=== PATIENT | male | born 1945 ===

== ENCOUNTER 2016-05-08 09:29 | Day surgery (SDC) | payer MEDICARE, OTHER ==
--- NOTE | ~2016-05-08 | EGD ---
EGD REPORT [facility] [address] [place] [address] NAME: ARTIE JARVIS : [birth year] [place] [facility] [place] [id number] AGE: 70 ADM/REG DATE : 05/08/16 MR#: [id number] REPORT SERV DATE: 05/08/16 DICTATED BY: FRED INIGUEZ DATE: 05/08/16 REPORT STATUS : Draft TRANSCRIBED BY: [facility] DATE: 05/08/16 Endoscopy Center Patient Name: Artie Jarvis Date of : 1945 Attending MD: FRED INIGUEZ, Procedure Date No Time: 05/08/2016 Procedure: Upper EUS Indications: Elevated amylase, Elevated lipase, Elevated bilirubin Referring MD: JONES ESCALANTE Medicines: Monitored Anesthesia Care Complications: No immediate complications. Estimated blood loss: None. Procedure: Pre-Anesthesia Assessment: - ASA Grade Assessment: III - A patient with severe systemic disease. After obtaining informed consent, the endoscope was passed under direct vision. Throughout the procedure, the patient's blood pressure, pulse, and oxygen saturations were monitored continuously. The Endoscope was introduced through the mouth, and advanced to the second part of duodenum. The GIF [id number] was introduced through the mouth, and advanced to the second part of duodenum. The upper EUS was accomplished without difficulty. The patient tolerated the procedure well. Findings: Endoscopic Finding : The examined esophagus was endoscopically normal. Patchy moderate inflammation characterized by erosions and erythema was found in the stomach. Biopsies were taken with a cold forceps for histology. Verification of patient identification for the specimen was done. Estimated blood loss was minimal. The cardia and gastric fundus were normal on retroflexion. The examined duodenum was normal. Biopsies were taken with a cold forceps for histology. Verification of patient identification for the specimen was done. Estimated blood loss was minimal. Endosonographic Finding : There was no sign of significant endosonographic abnormality in the common bile duct. No stones, no biliary sludge and ducts of normal caliber were identified. The bile duct measured 3 mm. There was no sign of significant endosonographic abnormality in the entire pancreas. The pancreatic duct measured 2 m in the head. The pancreas was well visualized, no pathologic lymphadenopathy, no masses, no calcifications, the pancreatic duct was well visualized from ampulla to tail, the pancreatic duct was regular in contour. No lymphadenopathy seen. EGD REPORT [address] [place]. [address] [facility] [birth year] [place] [facility] [place] [id number] AGE: 70 ADM/REG DATE : 05/08/16 MR#: [id number] REPORT SERV DATE: 05/08/16 DICTATED BY: FRED INIGUEZ DATE: 05/08/16 REPORT STATUS : Draft TRANSCRIBED BY: [employer] DATE: 05/08/16 Impression: - Normal esophagus. - Gastritis. Biopsied. - Normal examined duodenum. Biopsied. - There was no sign of significant pathology in the common bile duct. - There was no sign of significant pathology in the entire pancreas. Recommendation: - Return to previous diet. - Continue present medications. - Await path results. - Return to referring physician. Procedure Code(s): --- Professional --- 81484, Esophagogastroduodenoscopy, flexible, transoral; with endoscopic ultrasound examination, including the esophagus, stomach, and either the duodenum or a surgically altered stomach where the jejunum is examined distal to the anastomosis Diagnosis Code(s): --- Professional --- K29.70, Gastritis, unspecified, without bleeding R74.8, Abnormal levels of other serum enzymes E80.7, Disorder of bilirubin metabolism, unspecified CPT copyright 2013 [employer]. All rights reserved. The codes documented in this report are preliminary and upon immigration services officer review may be revised to meet current compliance requirements. FREDNOMAN INIGUEZ, 05/08/2016 12:36 PM Number of Addenda: 0 Note Initiated On: 05/08/2016 11:55 AM Scope Withdrawal Time 0 hours 0 minutes 0 seconds [id number] [id number]
[~2016-05-08 09:29] MED LIST: ASAB PO; CLARIT10 PO; CLINDA150 PO; FISH-EPA1000 MG PO; LIPITOR40 PO; LIPOTRIAD1 CAP PO; PRILO PO; PRIN10 PO; REST15 PO
[2016-05-08 10:28] LABS: CHLORIDE, SERUM 104 MMOL/L (96-112); SODIUM, SERUM 138 MMOL/L (135-148)
[2016-05-08 10:42] LABS: BUN (BLOOD UREA NITROGEN) 21 MG/DL (6-23); CALCIUM, SERUM 9.3 MG/DL (8.5-10.4); CO2 (CARBON DIOXIDE) 25 MMOL/L (24-34); CREATININE 0.97 MG/DL (0.70-1.30); GFR AFRICAN AMERICAN 92 ML/MIN (>=60); GFR NON AFRICAN AMERICAN 79 ML/MIN (>=60); GLUCOSE, SERUM 107 MG/DL (60-99)
== END 2016-05-08 23:59 | disposition home health service (06) ==
LOC: DMU 09:29
PROVIDERS: Anesthesiology; Internal Medicine Gastroenterology
PROC: 0DJ08ZZ Inspection of Upper Intestinal Tract, Via Natural or Artificial Opening Endoscopic (ICD-10-PCS; principal; 2016-05-08 10:30)
PROC: BD42ZZZ Ultrasonography of Stomach (ICD-10-PCS; 2016-05-08 10:30)
DX: K31.7 Polyp of stomach and duodenum (principal); I10 Essential (primary) hypertension; I25.10 Atherosclerotic heart disease of native coronary artery without angina pectoris; G47.33 Obstructive sleep apnea (adult) (pediatric); K21.9 Gastro-esophageal reflux disease without esophagitis; E78.00 Pure hypercholesterolemia, unspecified; Z90.49 Acquired absence of other specified parts of digestive tract; Z98.890 Other specified postprocedural states
CPT/HCPCS: 80048; 88305; C1725; J2250; J2370; J2405; J2710; J3010; Q9967